=== PATIENT | female | born 1995 | race Caucasian/White ===

== ENCOUNTER 2018-07-21 06:10 | Inpatient (IN) | payer OTHER ==
[~2018-07-21] VITALS: Ht 165.1 cm; Wt 125.0 kg
[~2018-07-21 06:10] MED LIST: IBUPROFEN600 MG PO; MONTELUKAST SOD10 MG PO; SEREVENT DISKU1 PUFF INH; VENTOLIN HFA18 GM INH
--- NOTE | 2018-07-21 08:06 | PR ---
[facility] [address] [facility] [place] [address] Signed Progress Notes IP Datetime Report Generated by CPN: 07/21/2018 08:05 PROGRESS NOTES: [id number] Procedures: Artificial ROM Plan: Continue present management; Anticipate Vaginal Delivery VITAL SIGNS: [id number] Vital Signs: Reviewed; Within Normal Limits EXAM: [id number] Dilatation: 4.0 Effacement: 75 Station: -3 Uterine Contractions: none MEMBRANES: [id number] Membrane Status: Ruptured Amniotic Fluid Color: Clear ROM Note: AROM without difficulty Fetus A: [id number] FHR Baseline: 150 Variability: Moderate 6-25bpm Presentation: Vertex Fetus B: [id number] Signing Physician: Thom Anaya MD Copies: ~ *Electronically Signed* 07/21/18 0805 THOM ANAYA MD PATIENT NAME: MARVIN TRIMBLE PROGRESS NOTE DATE OF : 96 PHYSICIAN: THOM ANAYA MD RPT #: [id number] REPORT IS CONFIDENTIAL AND NOT TO BE RELEASED WITHOUT AUTHORIZATION
--- NOTE | 2018-07-21 13:46 | PR ---
[facility] [address] [facility] [place], [place] [address] Signed Progress Notes IP Datetime Report Generated by CPN: 07/21/2018 13:46 PROGRESS NOTES: [id number] Impression: Normal progression of labor Procedures: Artificial ROM Plan: Continue present management; Anticipate Vaginal Delivery VITAL SIGNS: [id number] Vital Signs: Reviewed; Within Normal Limits EXAM: [id number] Dilatation: 6.0 Effacement: 80 Station: -2 Uterine Contractions: every 2-3 minutes MEMBRANES: [id number] Membrane Status: Ruptured Amniotic Fluid Color: Clear ROM Note: AROM without difficulty Comments: Comfortable with Epidural; will continue monitoring Fetus A: [id number] FHR Baseline: 150 Variability: Moderate 6-25bpm Accelerations: 10X10 Presentation: Vertex Fetus B: [id number] Signing Physician: Thom Anaya MD Copies: ~ *Electronically Signed* 07/21/18 1346 THOM ANAYA MD PATIENT NAME: MARVIN TRIMBLE PROGRESS NOTE DATE OF : 96 PHYSICIAN: THOM ANAYA MD RPT #: [id number] REPORT IS CONFIDENTIAL AND NOT TO BE RELEASED WITHOUT AUTHORIZATION
--- NOTE | 2018-07-21 18:53 | PR ---
[facility] [address] [facility] [place], [place] [address] Signed Progress Notes IP Datetime Report Generated by CPN: 07/21/2018 18:53 PROGRESS NOTES: [id number] Impression: Normal progression of labor Procedures: Intrauterine Pressure Catheter; Scalp Electrode Plan: Continue present management; Augmentation VITAL SIGNS: [id number] Vital Signs: Reviewed; Within Normal Limits EXAM: [id number] Dilatation: 8.0 Effacement: 90 Station: -2 Uterine Contractions: every 2-3 minutes MEMBRANES: [id number] Membrane Status: Ruptured Amniotic Fluid Color: Clear ROM Note: AROM without difficulty Comments: Comfortable with Epidural, on Pitocin augmentation. Continue monitoring. Fetus A: [id number] FHR Baseline: 145 Variability: Moderate 6-25bpm Accelerations: 10X10 Decelerations: Variable Presentation: Vertex Fetus B: [id number] Signing Physician: Thom Anaya MD Copies: ~ *Electronically Signed* 07/21/18 1853 THOM ANAYA MD PATIENT NAME: MARVIN TRIMBLE PROGRESS NOTE DATE OF : 96 PHYSICIAN: THOM ANAYA MD RPT #: [id number] REPORT IS CONFIDENTIAL AND NOT TO BE RELEASED WITHOUT AUTHORIZATION
--- NOTE | 2018-07-21 20:08 | PR ---
[facility] [address] [facility] [place], [place] [address] Signed Progress Notes IP Datetime Report Generated by CPN: 07/21/2018 20:08 PROGRESS NOTES: [id number] Impression: Slow Progression of Labor Procedures: Intrauterine Pressure Catheter; Scalp Electrode Plan: Continue present management VITAL SIGNS: [id number] Vital Signs: Reviewed; Within Normal Limits EXAM: [id number] Dilatation: 8.0 Effacement: 90 Station: -1 Uterine Contractions: every 1-2 minutes MEMBRANES: [id number] Membrane Status: Ruptured Amniotic Fluid Color: Clear ROM Note: AROM without difficulty Comments: No progress in past 2.5 hours, with good contractions, head not well-applied to cervix now. Will continue a little longer to see if will make progress. Discussed possible C/S if no further progress. Fetus A: [id number] FHR Baseline: 145 Variability: Moderate 6-25bpm Accelerations: 10X10 Decelerations: Variable Presentation: Vertex Fetus B: [id number] Signing Physician: Thom Anaya MD Copies: ~ *Electronically Signed* 07/21/182007 THOM ANAYA MD PATIENT NAME: MARVIN TRIMBLE PROGRESS NOTE DATE OF : 96 PHYSICIAN: THOM ANAYA MD RPT #: [id number] REPORT IS CONFIDENTIAL AND NOT TO BE RELEASED WITHOUT AUTHORIZATION
--- NOTE | 2018-07-21 20:49 | PR ---
[facility] [address] [place], [place] [address] Signed Progress Notes IP Datetime Report Generated by CPAle: 07/21/2018 20:49 PROGRESS NOTES: [id number] Impression: Arrest of dilatation/descent Procedures: Intrauterine Pressure Catheter; Scalp Electrode Plan: Deliver- Section Informed Consent Obtain: Section Delivery VITAL SIGNS: [id number] Vital Signs: Reviewed; Within Normal Limits EXAM: [id number] Dilatation: 8.0 Effacement: 90 Station: -2 Uterine Contractions: every 1-2 minutes MEMBRANES: [id number] Membrane Status: Ruptured Amniotic Fluid Color: Clear ROM Note: AROM without difficulty Comments: Still no progress and vertex not applied to cervix, despite good contraciton pattern. Also macrosomia suspected by size and U/S EFW. Suggest C/S; ;discussed risks, benefits, timing, risks of future C/S's, discussed recovery. Questions naswered. Patient agrees, signed consent. call or contact centre team leader to OR for Primary C/S Fetus A: [id number] FHR Baseline: 150 Variability: Moderate 6-25bpm Accelerations: 10X10 Decelerations: Variable Presentation: Vertex Fetus B: [id number] Signing Physician: Jose Anaya MD Copies: ~ *Electronically Signed* 07/21/182048 JOSE ANAYA MD PATIENT NAME: MARVIN TRIMBLE PROGRESS NOTE DATE OF : 96 PHYSICIAN: JOSE ANAYA MD RPT #: [id number] REPORT IS CONFIDENTIAL AND NOT TO BE RELEASED WITHOUT AUTHORIZATION
--- NOTE | 2018-07-21 22:27 | NUR ---
07/21/182226 Charmaine Sweeney 0- PT ARRIVES TO [facility] RM 102 FROM OR AWAKE AND ALERT. RESP EVEN AND UNLABORED. PT DENIES PAIN OR NAUSEA. PT BEGINS BREAST FEEDING BABY IMMEDIATELY ONCE IN RM ON LEFT BREAST. FAMILY AT BEDSIDE. AMY SLAUGHTER IN PT RM TENDING TO BABY.
--- NOTE | 2018-07-22 11:55 | PR ---
[facility] [address] [facility] [place], [place] [address] Signed PP Progress Notes Datetime Report Generated by CPN: 07/22/2018 11:55 SUBJECTIVE: [id number] Pain: Within normal limits Nausea/Vomiting: Denies Vital Signs: [id number] Vital Signs: Reviewed; Within Normal Limits Notable Details: PP Hgb/Hct = 11.0/33.2 EXAM: [id number] Abdomen/Uterus: Normal Lochia: Normal Extremities: Normal Incision: Normal IMPRESSION/PLAN/PROCEDURES: [id number] Impression: Normal progression Plan: Continue present management Procedures: None Progress Notes: Doing well, wihtout complalint. Will increase actitiDannie chavarria/Grzegorz Rodríguez this afternoon Signing Physician: Jsoe Anderson MD Copies: ~ *Electronically Signed* 07/22/18 1155 JOSE ANDERSON MD PATIENT NAME: MARVIN TRIMBLE PROGRESS NOTE DATE OF : 96 PHYSICIAN: JOSE ANDERSON MD RPT #: [id number] REPORT IS CONFIDENTIAL AND NOT TO BE RELEASED WITHOUT AUTHORIZATION
--- NOTE | 2018-07-22 11:56 | OR ---
[facility] [address] [place], [place] [address] Signed DATE OF OPERATION: 07/21/2018 SURGEON: Jose Anderson MD Patient of Dr. Anderson. PREOPERATIVE DIAGNOSES: Term , failure to progress, macrosomia. POSTOPERATIVE DIAGNOSES: Term , failure to progress, macrosomia. PROCEDURES PERFORMED: Primary low transverse segment section. Delivery of live male . SPECIAL NEEDS LIBRARIAN: Dr. Farnsworth. ANESTHESIA: Epidural. ESTIMATED BLOOD LOSS: 700 mL. COMPLICATIONS: None. DRAINS: Rodríguez to bladder. FINDINGS: Live male in ROP position , Apgars 8 and 9. Weight 9 pounds 1 ounce. Also normal uterus. Normal tubes and ovaries bilateral. DESCRIPTION OF PROCEDURE: The patient was brought to the operating room, placed in supine position. After adequate epidural anesthesia was obtained, was prepped and draped in usual sterile fashion. The patient already had Rodríguez catheter in place. A Pfannenstiel skin incision was made with a scalpel and extended through subcutaneous tissue with the Bovie. The Electronically Signed By: JOSE ANDERSON MD 07/22/18 1156 PATIENT NAME: MARVIN TRIMBLE OPERATIVE REPORT DATE OF : [birth year] REPORT #: [id number] PHYSICIAN: JOSE ANDERSON MD PCP: PADDY ARREGUIN MD REPORT IS CONFIDENTIAL AND NOT TO BE RELEASED WITHOUT AUTHORIZATION [facility] [address] [place], [place] [address] Signed fascia was nicked with scalpel and extended in transverse fashion using curved scissors. The underlying abdominal musculature was bluntly and sharply from the fascia above and below the incision. The abdominal musculature was bluntly and sharply along the midline. Peritoneum was grasped with hemostats, elevated, nicked with Metzenbaum scissors and extended in vertical fashion using Metzenbaum scissors. The Ino self-retaining retractor was inserted into the incision and tightened in place. The lower uterine segment was identified and scalpel used to make small incision in the midline. Finger dissection was used in transverse fashion to open the incision. The bulging bag of clear fluid came from the incision, which was then ruptured. The noted to be in vertex ROP presentation. Infant's head easily delivered from the incision. The rest of the infant was easily delivered from the incision and the cord doubly clamped and cut. The infant passed off table in good condition to awaiting nurse. Sample cord was taken and then the placenta manually removed. The uterine cavity was explored with a lap pad to remove any retained membranes. Angle stitch of 0 Monocryl was placed at one end in incision and a running locking stitch of 0 Monocryl starting at the other end used to close the incision. Second running stitch of 0 Monocryl was used to imbricate the first layer. Good hemostasis was then noted. The entire pelvis was irrigated, suctioned, examined, and noted to have good hemostasis. The Ino retractor was removed and sheet of ACell placed over the lower uterine segment. The anterior wall peritoneum was then closed using running stitch of 2-0 Vicryl suture. Abdominal musculature was reapproximated using interrupted stitches of 0 Vicryl suture. Abdominal wall incision was irrigated, suctioned, examined, any bleeding spots cauterized with the Bovie. Powdered ACell sprinkled on the abdominal musculature to help with healing and then the fascia closed using two running stitch of 0 Vicryl suture meeting in the midline. Subcutaneous tissue was irrigated, suctioned, examined, any bleeding spots cauterized with the Bovie. Subcutaneous tissue was then closed using interrupted stitches of 3-0 Vicryl suture. Skin was reapproximated using skin clips. The patient tolerated the procedure well, went to recovery room in good condition. Sponge, needle, and instrument count correct at the end of procedure. Jose Anderson MD MJB/MODL /[id number] Electronically Signed By: JOSE ANDERSON MD 07/22/18 1156 PATIENT NAME: MARVIN TRIMBLE OPERATIVE REPORT DATE OF : [birth year] REPORT #: [id number] PHYSICIAN: JOSE ANDERSON MD PCP: PADDY ARREGUIN MD REPORT IS CONFIDENTIAL AND NOT TO BE RELEASED WITHOUT AUTHORIZATION [facility] [address] [place] [address] [place] [address] Signed Copies: ~ Electronically Signed By: JOSE ANDERSON MD 07/22/18 1156 PATIENT NAME: CONNER TRIMBLEHILLARY RODRÍGUEZ OPERATIVE REPORT DATE OF : [birth year] REPORT #: [id number] PHYSICIAN: JOSE ANDERSON MD PCP: PADDY ARREGUIN MD REPORT IS CONFIDENTIAL AND NOT TO BE RELEASED WITHOUT AUTHORIZATION
--- NOTE | 2018-07-23 10:25 | PR ---
[facility] [address] [facility] [place] [address] Signed PP Progress Notes Datetime Report Generated by CPN: 07/23/2018 10:25 SUBJECTIVE: [id number] Pain: Within normal limits Nausea/Vomiting: Denies Vital Signs: [id number] Vital Signs: Reviewed; Within Normal Limits Notable Details: PP Hgb/Hct = 11.0/33.2 EXAM: [id number] Abdomen/Uterus: Normal Lochia: Normal Extremities: Normal Incision: Normal IMPRESSION/PLAN/PROCEDURES: [id number] Impression: Normal progression Plan: Continue present management Procedures: None Progress Notes: Doing well, except still moving slowly. Will continue monitoring, increase activity. Home tomorrow. Signing Physician: Thom Anaya MD Copies: ~ *Electronically Signed* 07/23/18 1025 THOM ANAYA MD PATIENT NAME: MARVIN TRIMBLE PROGRESS NOTE DATE OF : 96 PHYSICIAN: THOM ANAYA MD RPT #: [id number] REPORT IS CONFIDENTIAL AND NOT TO BE RELEASED WITHOUT AUTHORIZATION
--- NOTE | 2018-07-24 11:37 | PR ---
[facility] [address] [facility] [place] [address] Signed PP Progress Notes Datetime Report Generated by CPN: 07/24/2018 11:37 SUBJECTIVE: [id number] Pain: Within normal limits Nausea/Vomiting: Denies Vital Signs: [id number] Vital Signs: Reviewed; Within Normal Limits Notable Details: PP Hgb/Hct = 11.0/33.2 EXAM: [id number] Abdomen/Uterus: Normal Lochia: Normal Extremities: Normal Incision: Normal IMPRESSION/PLAN/PROCEDURES: [id number] Impression: Normal progression Plan: Discharge Procedures: None Progress Notes: Doing well, ready to go home. Signing Physician: Thom Anaya MD Copies: ~ *Electronically Signed* 07/24/18 1137 THOM ANAYA MD PATIENT NAME: MARVIN TRIMBLE PROGRESS NOTE DATE OF : [birth year] PHYSICIAN: THOM ANAYA MD RPT #: [id number] REPORT IS CONFIDENTIAL AND NOT TO BE RELEASED WITHOUT AUTHORIZATION
== END 2018-07-24 15:30 | disposition home or self-care (01) | DRG 788 ==
LOC: FBC 06:10
PROVIDERS: ADMIT General Practice
PROC: 10907ZC Drainage of Amniotic Fluid, Therapeutic from Products of Conception, Via Natural or Artificial Opening (ICD-10-PCS; 2018-07-21)
PROC: 10H07YZ Insertion of Other Device into Products of Conception, Via Natural or Artificial Opening (ICD-10-PCS; 2018-07-21)
PROC: 00HU33Z Insertion of Infusion Device into Spinal Canal, Percutaneous Approach (ICD-10-PCS; 2018-07-21)
PROC: 3E0R3BZ Introduction of Anesthetic Agent into Spinal Canal, Percutaneous Approach (ICD-10-PCS; 2018-07-21)
PROC: 10D00Z1 Extraction of Products of Conception, Low, Open Approach (ICD-10-PCS; principal; 2018-07-21 21:08)
DX: O36.63X0 Maternal care for excessive fetal growth, third trimester, not applicable or unspecified (principal); Z3A.38 38 weeks gestation of pregnancy; Z37.0 Single live birth; O76 Abnormality in fetal heart rate and rhythm complicating labor and delivery; O62.1 Secondary uterine inertia; O99.52 Diseases of the respiratory system complicating childbirth; J45.909 Unspecified asthma, uncomplicated; Z87.891 Personal history of nicotine dependence; Z79.899 Other long term (current) drug therapy; Z88.1 Allergy status to other antibiotic agents; Z88.2 Allergy status to sulfonamides
CPT/HCPCS: 01961; 36415; 85027; J0131; J0690; J1100; J1644; J2270; J2274; J2370; J2405; J2590

== ENCOUNTER 2019-04-19 16:27 | Emergency (ER) | payer OTHER ==
[~2019-04-19] VITALS: Ht 165.1 cm; Wt 127.0 kg
[2019-04-19] MEDS ORDERED: ESCITALOPRAM OX10 MG PO (16:38)
[2019-04-19] MEDS ORDERED: MECLIZINE HCL25 MG PO (19:16)
== END 2019-04-19 19:36 | disposition home or self-care (01) ==
LOC: ED 16:27
DX: R42 Dizziness and giddiness (principal); J45.909 Unspecified asthma, uncomplicated
CPT/HCPCS: 70450; 71045; 80053; 81001; 84703; 85025; 85379; 99284-25

== ENCOUNTER 2020-01-08 15:09 | Emergency (ER) | payer OTHER ==
[~2020-01-08] VITALS: Ht 165.1 cm; Wt 127.0 kg
[~2020-01-08 15:09] MED LIST changes: +ESCITALOPRAM OX10 MG PO; +MECLIZINE HCL25 MG PO
[2020-01-08] MEDS ORDERED: LEXAPRO20 MG PO (15:32)
== END 2020-01-08 18:40 | disposition home or self-care (01) ==
LOC: ED 15:09
DX: R45.851 Suicidal ideations (principal); J45.909 Unspecified asthma, uncomplicated; F32.9 Major depressive disorder, single episode, unspecified; Z88.1 Allergy status to other antibiotic agents; Z88.2 Allergy status to sulfonamides; Z79.899 Other long term (current) drug therapy
CPT/HCPCS: 80053; 80176; 81001; 84443; 84703; 85025; 99284; G0480

== ENCOUNTER 2023-07-31 20:01 | Emergency (ER) | payer OTHER ==
[~2023-07-31] VITALS: Ht 165.1 cm; Wt 110.0 kg
[~2023-07-31 20:01] MED LIST changes: +LEXAPRO20 MG PO
[2023-07-31 22:10] VITALS: BP 111/73
== END 2023-07-31 22:11 | disposition home or self-care (01) ==
LOC: ED 20:01
DX: S46.911A Strain of unspecified muscle, fascia and tendon at shoulder and upper arm level, right arm, initial encounter (principal); X50.1XXA Overexertion from prolonged static or awkward postures, initial encounter; Z88.8 Allergy status to other drugs, medicaments and biological substances; Z79.899 Other long term (current) drug therapy
CPT/HCPCS: 73030; 99283-25